=== PATIENT | male | born 1935 | race Caucasian/White ===

== ENCOUNTER 2017-01-28 10:32 | Inpatient (IN) ==
[2017-01-28] MEDS ORDERED: ONDANSETRON 4 MG/2 ML VIAL IV PRN (11:58)
[2017-01-28] MEDS: MORPHINE 2 MG/1 ML SYRINGE IV PRN (15:44)
[2017-01-28] MEDS: DEXTROSE 5% NACL 0.45% 1,000 ML IV SCH (15:44)
[2017-01-28] MEDS: CIPROFLOXACIN INJ 400 MG in PREMIX 1 EACH IV SCH (15:50)
[2017-01-28] MEDS: metroNIDAZOLE INJ 500 MG in PREMIX 1 EACH IV SCH ×2 (17:19→23:53)
[2017-01-28] MEDS: ACETAMINOPHEN 325 MG TABLET PO PRN (21:19)
[2017-01-29] MEDS: CIPROFLOXACIN INJ 400 MG in PREMIX 1 EACH IV SCH (01:19)
[2017-01-29] MEDS: DEXTROSE 5% NACL 0.45% 1,000 ML IV SCH ×4 (03:20→21:57)
[2017-01-29 05:56] LABS: Basophils % 0.2 % (0.0-0.8); Eosinophils # 0.2 10*3/uL (0.0-0.87); Eosinophils % 1.7 % (0.00-10.9); Hematocrit 41.3 VOL% (42.0-52.0); Hemoglobin 13.9 GM/DL (14.0-18.0); Immature Granulocytes % 1.1 %; Immature Granulocytes Absolute 0.14 #; Lymphocytes # 1.1 10*3/uL (1.4-4.0); Lymphocytes % 8.4 % (21.2-54.2); Mean Corpuscular HGB Conc 33.7 GM/DL (32-36); Mean Corpuscular Hemoglobin 30 PG (27-34); Mean Corpuscular Volume 89.4 FL (87-102); Mean Platelet Volume 11.1 FL (9.6-12.0); Monocytes # 0.8 10*3/uL (0.11-0.8); Monocytes % 6.2 % (1.7-12.7); Neutrophils # 10.6 10*3/uL (1.4-7.4); Neutrophils % 82.4 % (38.7-73.9); Platelet Count 138 T/CUMM (130-400); Red Blood Count 4.62 MC/CUMM (3.8-5.5); Red Cell Distribution Width 13.1 % (9.3-17.3); White Blood Count 12.8 T/CUMM (4-12)
[2017-01-29 06:32] LABS: Albumin 2.3 G/DL (3.4-5.0); Bilirubin,Total 1.6 MG/DL (0.2-1.0); Calcium 7.5 MG/DL (8.5-10.1); Osmolality,Calculated 283.3 MOS/KG (273-304); Potassium 3.2 MMOL/L (3.5-5.1); Total Protein 4.9 G/DL (6.4-8.3)
[2017-01-29] MEDS ORDERED: MORPHINE 2 MG/1 ML SYRINGE ONE (07:15)
[2017-01-29] MEDS ORDERED: ONDANSETRON 4 MG/2 ML VIAL ONE (07:31)
[2017-01-29 07:38] LABS: Burr Cells 2+; Lymphocytes 8 % (20-55); Microcytosis 2+; Platelet Estimate Decreased; Segmented Neutrophils 85 % (50-85); Total Cells Counted 100
[2017-01-29] MEDS: MORPHINE 2 MG/1 ML SYRINGE IV PRN ×2 (07:40→09:45)
[2017-01-29] MEDS: metroNIDAZOLE INJ 500 MG in PREMIX 1 EACH IV SCH ×2 (08:44→19:48)
[2017-01-29 10:01] LABS: ABG Base Excess -4.6 MMOL/L (-2.5-2.5); ABG HCO3 18.8 MMOL/L (20-26); ABG Oxygen Saturation 93.9 % (95-100); ABG PCO2 30.8 MM HG (35-48); ABG PH 7.404 (7.35-7.45); ABG PO2 61.6 MM HG (80-95); ABG TCO2 19.8 MMOL/L (23-27); Glucose Heart Surgery 113 MG/DL (74-106); Hemoglobin Heart Surgery 15.6 G/DL (14.0-18.0); Potassium Heart/CVR 3.4 MMOL/L (3.5-5.1)
[2017-01-29] MEDS ORDERED: ALBUTEROL 1.25 MG/3 ML NEB RESP TX PRN (10:06)
[2017-01-29] MEDS ORDERED: ALBUTEROL 1.25 MG/3 ML NEB RESP TX ONE (10:06)
[2017-01-29 10:10] LABS: Basophils % 0.2 % (0.0-0.8); Eosinophils # 0.1 10*3/uL (0.0-0.87); Eosinophils % 1.1 % (0.00-10.9); Hematocrit 44.7 VOL% (42.0-52.0); Hemoglobin 15.5 GM/DL (14.0-18.0); Immature Granulocytes % 1.9 %; Immature Granulocytes Absolute 0.22 #; Lymphocytes # 0.7 10*3/uL (1.4-4.0); Lymphocytes % 5.9 % (21.2-54.2); Mean Corpuscular HGB Conc 34.7 GM/DL (32-36); Mean Corpuscular Hemoglobin 31 PG (27-34); Mean Corpuscular Volume 90.1 FL (87-102); Mean Platelet Volume 11.5 FL (9.6-12.0); Monocytes # 0.3 10*3/uL (0.11-0.8); Monocytes % 2.3 % (1.7-12.7); Neutrophils # 10.2 10*3/uL (1.4-7.4); Neutrophils % 88.6 % (38.7-73.9); Platelet Count 155 T/CUMM (130-400); Red Blood Count 4.96 MC/CUMM (3.8-5.5); Red Cell Distribution Width 13.2 % (9.3-17.3); White Blood Count 11.5 T/CUMM (4-12)
[2017-01-29] MEDS: ACETAMINOPHEN 325 MG TABLET PO PRN (10:23)
[2017-01-29 10:48] LABS: Albumin 2.5 G/DL (3.4-5.0); Bilirubin,Total 1.6 MG/DL (0.2-1.0); Magnesium 1.8 MG/DL (1.8-2.4); Osmolality,Calculated 280.4 MOS/KG (273-304); Potassium 3.9 MMOL/L (3.5-5.1); Total Protein 5.6 G/DL (6.4-8.3)
[2017-01-29] MEDS: PIPERACILLIN/TAZOBACTAM 3,375 MG in SODIUM CHLORIDE 0.9% 100 ML IV SCH ×2 (12:00→21:57)
[2017-01-29 12:48] LABS: Apearance,Urine CLEAR (Clear); Bilirubin,Urine Negative (Negative); Blood, Urine Small mg/dL (Negative); Glucose,Urine (UA) Negative (Negative); Ketones,Urine Negative (Negative); Mucus,Urine Occasional /LPF (Occasional); Nitrite,Urine Negative (Negative); Protein,Urine 30 MG/DL; RBC,Urine 3 /HPF (0-4); Urine Color Amber (Yellow); WBC,Urine 2 /HPF (0-6)
[2017-01-29] MEDS: ENOXAPARIN 40 MG/0.4 ML SYRINGE SUBCUT SCH (18:57)
[2017-01-29] MEDS: PANTOPRAZOLE 40 MG TABLET PO SCH (19:45)
[2017-01-29] MEDS: MEROPENEM 1,000 MG in SODIUM CHLORIDE 0.9% 50 ML IV SCH (19:48)
[2017-01-30] MEDS: MEROPENEM 1,000 MG in SODIUM CHLORIDE 0.9% 50 ML IV SCH ×4 (02:45→22:43)
[2017-01-30] MEDS: metroNIDAZOLE INJ 500 MG in PREMIX 1 EACH IV SCH ×3 (03:30→19:58)
[2017-01-30] MEDS: PIPERACILLIN/TAZOBACTAM 3,375 MG in SODIUM CHLORIDE 0.9% 100 ML IV SCH ×3 (04:54→18:44)
[2017-01-30 05:11] LABS: Basophils % 0.3 % (0.0-0.8); Eosinophils # 0.3 10*3/uL (0.0-0.87); Eosinophils % 2.1 % (0.00-10.9); Hematocrit 39.8 VOL% (42.0-52.0); Hemoglobin 13.3 GM/DL (14.0-18.0); Immature Granulocytes % 0.6 %; Immature Granulocytes Absolute 0.07 #; Lymphocytes # 0.6 10*3/uL (1.4-4.0); Lymphocytes % 4.7 % (21.2-54.2); Mean Corpuscular HGB Conc 33.4 GM/DL (32-36); Mean Corpuscular Hemoglobin 30 PG (27-34); Mean Corpuscular Volume 91.1 FL (87-102); Monocytes # 0.8 10*3/uL (0.11-0.8); Monocytes % 6.4 % (1.7-12.7); Neutrophils # 10.4 10*3/uL (1.4-7.4); Neutrophils % 85.9 % (38.7-73.9); Platelet Count 130 T/CUMM (130-400); Red Blood Count 4.37 MC/CUMM (3.8-5.5); Red Cell Distribution Width 13.2 % (9.3-17.3); White Blood Count 12.1 T/CUMM (4-12)
[2017-01-30 05:47] LABS: Bilirubin,Total 1.2 MG/DL (0.2-1.0); Calcium 7.3 MG/DL (8.5-10.1); Osmolality,Calculated 282.3 MOS/KG (273-304); Potassium 3.8 MMOL/L (3.5-5.1); Total Protein 4.6 G/DL (6.4-8.3)
[2017-01-30 06:01] LABS: Band Neutrophils 4 % (0-10); Lymphocytes 6 % (20-55); Platelet Estimate Normal; Segmented Neutrophils 87 % (50-85); Total Cells Counted 100
[2017-01-30 06:02] LABS: Giant Platelets Few; Hypochromasia Slight; Microcytosis Slight
[2017-01-30] MEDS: DEXTROSE 5% NACL 0.45% 1,000 ML IV SCH ×4 (06:24→22:42)
[2017-01-30] MEDS: PANTOPRAZOLE 40 MG TABLET PO SCH (09:15)
[2017-01-30] MEDS ORDERED: DILTIAZEM 50 MG/10 ML VIAL IV ONE (10:31)
[2017-01-30] MEDS: ALBUTEROL/IPRATROPIUM 3 ML NEB RESP TX SCH ×3 (11:00→19:15)
[2017-01-30 11:16] LABS: Apearance,Urine CLEAR (Clear); Bilirubin,Urine Negative (Negative); Blood, Urine Moderate mg/dL (Negative); Glucose,Urine (UA) Negative (Negative); Ketones,Urine Negative (Negative); Nitrite,Urine Negative (Negative); Protein,Urine 30 MG/DL; RBC,Urine 13 /HPF (0-4); Squamous Epithelial Cell,Urine Occasional /HPF (0-10); Urine Color Yellow (Yellow); Urine Specific Gravity 1.018 (1.001-1.035); WBC,Urine 7 /HPF (0-6)
[2017-01-30] MEDS: DILTIAZEM INJ 100 MG in SODIUM CHLORIDE 0.9% 100 ML IV SCH (12:15)
[2017-01-30] MEDS: ACETAMINOPHEN 325 MG TABLET PO PRN (12:17)
[2017-01-30] MEDS: DILTIAZEM 30 MG TABLET PO SCH ×3 (13:17→20:00)
[2017-01-30] MEDS ORDERED: PANTOPRAZOLE 40 MG TABLET PO PRN (13:19)
[2017-01-30] MEDS: ASPIRIN EC 325 MG TABLET PO SCH (14:10)
[2017-01-30] MEDS: ENOXAPARIN 40 MG/0.4 ML SYRINGE SUBCUT SCH (16:18)
[2017-01-31] MEDS: ALBUTEROL/IPRATROPIUM 3 ML NEB RESP TX SCH ×2 (01:03→07:06)
[2017-01-31] MEDS: metroNIDAZOLE INJ 500 MG in PREMIX 1 EACH IV SCH ×3 (02:59→20:18)
[2017-01-31] MEDS: PIPERACILLIN/TAZOBACTAM 3,375 MG in SODIUM CHLORIDE 0.9% 100 ML IV SCH ×3 (02:59→18:17)
[2017-01-31 03:13] LABS: ABG Base Excess -0.2 MMOL/L (-2.5-2.5); ABG HCO3 23.8 MMOL/L (20-26); ABG Oxygen Saturation 95.5 % (95-100); ABG PH 7.426 (7.35-7.45); ABG PO2 70.3 MM HG (80-95); ABG TCO2 24.9 MMOL/L (23-27); Allen Test Positive
[2017-01-31 05:22] LABS: Basophils % 0.4 % (0.0-0.8); Eosinophils # 0.3 10*3/uL (0.0-0.87); Eosinophils % 2.3 % (0.00-10.9); Hematocrit 39.5 VOL% (42.0-52.0); Hemoglobin 13.6 GM/DL (14.0-18.0); Immature Granulocytes % 1.2 %; Immature Granulocytes Absolute 0.13 #; Lymphocytes # 0.9 10*3/uL (1.4-4.0); Lymphocytes % 8.5 % (21.2-54.2); Mean Corpuscular HGB Conc 34.4 GM/DL (32-36); Mean Corpuscular Hemoglobin 30 PG (27-34); Mean Corpuscular Volume 88.4 FL (87-102); Mean Platelet Volume 11.2 FL (9.6-12.0); Monocytes # 1.1 10*3/uL (0.11-0.8); Monocytes % 10.3 % (1.7-12.7); NRBC # 0.04 10*3/uL; Neutrophils # 8.2 10*3/uL (1.4-7.4); Neutrophils % 77.3 % (38.7-73.9); Platelet Count 122 T/CUMM (130-400); Red Blood Count 4.47 MC/CUMM (3.8-5.5); Red Cell Distribution Width 13.4 % (9.3-17.3); White Blood Count 10.6 T/CUMM (4-12)
[2017-01-31] MEDS: MEROPENEM 1,000 MG in SODIUM CHLORIDE 0.9% 50 ML IV SCH ×4 (06:01→22:13)
[2017-01-31 07:31] LABS: Bilirubin,Total 0.6 MG/DL (0.2-1.0); Calcium 7.4 MG/DL (8.5-10.1); Osmolality,Calculated 285.8 MOS/KG (273-304); Total Protein 4.5 G/DL (6.4-8.3)
[2017-01-31] MEDS: DILTIAZEM INJ 100 MG in SODIUM CHLORIDE 0.9% 100 ML IV SCH ×3 (08:00→16:03)
[2017-01-31] MEDS: DILTIAZEM 30 MG TABLET PO SCH ×4 (08:02→20:19)
[2017-01-31] MEDS: ASPIRIN EC 325 MG TABLET PO SCH (08:02)
[2017-01-31] MEDS: PANTOPRAZOLE 40 MG TABLET PO SCH (08:02)
[2017-01-31] MEDS: POTASSIUM CHLORIDE RIDER 10 MEQ in PREMIX 1 EACH IV PRN ×5 (08:03→13:38)
[2017-01-31] MEDS ORDERED: DILTIAZEM 50 MG/10 ML VIAL IV ONE (08:35)
[2017-01-31] MEDS ORDERED: POTASSIUM CHLORIDE 10 MEQ TABLET PO SCH (09:00)
[2017-01-31] MEDS ORDERED: DILTIAZEM 60 MG TABLET PO ONE (09:16)
[2017-01-31] MEDS: MONTELUKAST 10 MG TABLET PO SCH (09:40)
[2017-01-31] MEDS ORDERED: MAGNESIUM SULF RIDER 4 GM in PREMIX 1 EACH IV PRN (10:42)
[2017-01-31] MEDS ORDERED: MAGNESIUM SULF RIDER 2 GM in PREMIX 1 EACH IV PRN (10:42)
[2017-01-31] MEDS: DEXTROSE 5% NACL 0.45% 1,000 ML IV SCH ×2 (11:33→23:56)
[2017-01-31] MEDS: LEVALBUTEROL 0.63 MG/3 ML NEB RESP TX SCH ×2 (13:13→19:50)
[2017-01-31] MEDS: ENOXAPARIN 40 MG/0.4 ML SYRINGE SUBCUT SCH (15:13)
[2017-01-31] MEDS: MORPHINE 2 MG/1 ML SYRINGE IV PRN (23:56)
[2017-01-31] MEDS: ACETAMINOPHEN 325 MG TABLET PO PRN (23:56)
[2017-02-01] MEDS: LEVALBUTEROL 0.63 MG/3 ML NEB RESP TX SCH ×4 (01:02→20:03)
[2017-02-01] MEDS: DILTIAZEM INJ 100 MG in SODIUM CHLORIDE 0.9% 100 ML IV SCH (01:45)
[2017-02-01 02:51] LABS: ABG Base Excess 1.8 MMOL/L (-2.5-2.5); ABG Oxygen Saturation 94.7 % (95-100); ABG PH 7.472 (7.35-7.45); ABG PO2 63.3 MM HG (80-95); ABG TCO2 26.1 MMOL/L (23-27); Allen Test Positive
[2017-02-01] MEDS: PIPERACILLIN/TAZOBACTAM 3,375 MG in SODIUM CHLORIDE 0.9% 100 ML IV SCH ×3 (03:31→18:56)
[2017-02-01] MEDS: metroNIDAZOLE INJ 500 MG in PREMIX 1 EACH IV SCH ×3 (03:31→22:34)
[2017-02-01 06:18] LABS: Calcium 7.3 MG/DL (8.5-10.1); Osmolality,Calculated 284.8 MOS/KG (273-304); Potassium 3.2 MMOL/L (3.5-5.1)
[2017-02-01] MEDS: MEROPENEM 1,000 MG in SODIUM CHLORIDE 0.9% 50 ML IV SCH ×3 (06:24→23:36)
[2017-02-01] MEDS: POTASSIUM CHLORIDE RIDER 10 MEQ in PREMIX 1 EACH IV PRN ×4 (07:03→11:06)
[2017-02-01] MEDS: ASPIRIN EC 325 MG TABLET PO SCH (08:33)
[2017-02-01] MEDS: PANTOPRAZOLE 40 MG TABLET PO SCH (08:33)
[2017-02-01] MEDS: POTASSIUM CHLORIDE 20 MEQ TABLET PO SCH (08:33)
[2017-02-01] MEDS: MONTELUKAST 10 MG TABLET PO SCH (08:33)
[2017-02-01] MEDS: DILTIAZEM 30 MG TABLET PO SCH (08:33)
[2017-02-01] MEDS: DILTIAZEM CD 240 MG CAPSULE PO SCH (09:41)
[2017-02-01] MEDS: ENOXAPARIN 40 MG/0.4 ML SYRINGE SUBCUT SCH (16:26)
[2017-02-01] MEDS: DOCOSANOL 10% CREAM 2 GM TUBE TOP SCH ×2 (17:40→21:35)
[2017-02-01] MEDS: MORPHINE 2 MG/1 ML SYRINGE IV PRN (21:40)
[2017-02-02] MEDS: LEVALBUTEROL 0.63 MG/3 ML NEB RESP TX SCH ×4 (00:28→21:00)
[2017-02-02] MEDS: PIPERACILLIN/TAZOBACTAM 3,375 MG in SODIUM CHLORIDE 0.9% 100 ML IV SCH ×3 (03:26→23:39)
[2017-02-02] MEDS: MORPHINE 2 MG/1 ML SYRINGE IV PRN (03:29)
[2017-02-02] MEDS: DOCOSANOL 10% CREAM 2 GM TUBE TOP SCH ×5 (05:48→20:30)
[2017-02-02 07:09] LABS: Calcium 7.4 MG/DL (8.5-10.1); Osmolality,Calculated 279.3 MOS/KG (273-304); Potassium 3.8 MMOL/L (3.5-5.1)
[2017-02-02] MEDS: metroNIDAZOLE INJ 500 MG in PREMIX 1 EACH IV SCH ×2 (09:14→17:14)
[2017-02-02] MEDS: ASPIRIN EC 325 MG TABLET PO SCH (09:15)
[2017-02-02] MEDS: DILTIAZEM CD 240 MG CAPSULE PO SCH (09:15)
[2017-02-02] MEDS: POTASSIUM CHLORIDE 20 MEQ TABLET PO SCH (09:16)
[2017-02-02] MEDS: PANTOPRAZOLE 40 MG TABLET PO SCH (09:16)
[2017-02-02] MEDS: MONTELUKAST 10 MG TABLET PO SCH (09:16)
[2017-02-02] MEDS: MEROPENEM 1,000 MG in SODIUM CHLORIDE 0.9% 50 ML IV SCH ×2 (10:57→20:31)
[2017-02-02 13:09] LABS: Apearance,Urine CLEAR (Clear); Bilirubin,Urine Negative (Negative); Blood, Urine Negative (Negative); Glucose,Urine (UA) Negative (Negative); Ketones,Urine 5 mg/dL (Negative); Mucus,Urine Occasional /LPF (Occasional); Nitrite,Urine Negative (Negative); Protein,Urine Negative; RBC,Urine 3 /HPF (0-4); Urine Color Yellow (Yellow); Urine Specific Gravity 1.012 (1.001-1.035); Urine Urobilinogen < 2.0 EU/DL (0.2-1.0); WBC,Urine 1 /HPF (0-6)
[2017-02-02 14:59] LABS: Procalcitonin, S 3.1 ng/mL (<=0.15)
[2017-02-02] MEDS ORDERED: TUBERCULIN SKIN TEST 0.1 ML SYRINGE INTRADERM ONE (15:00)
[2017-02-02] MEDS: ZINC OXIDE PASTE 113 GM TUBE TOP SCH (15:05)
[2017-02-02] MEDS: ENOXAPARIN 40 MG/0.4 ML SYRINGE SUBCUT SCH (17:18)
[2017-02-03] MEDS: metroNIDAZOLE INJ 500 MG in PREMIX 1 EACH IV SCH ×2 (00:13→08:03)
[2017-02-03] MEDS: DOCOSANOL 10% CREAM 2 GM TUBE TOP SCH ×3 (00:14→10:12)
[2017-02-03] MEDS: ZINC OXIDE PASTE 113 GM TUBE TOP SCH ×2 (00:14→10:12)
[2017-02-03] MEDS: LEVALBUTEROL 0.63 MG/3 ML NEB RESP TX SCH ×3 (01:04→12:08)
[2017-02-03] MEDS: MEROPENEM 1,000 MG in SODIUM CHLORIDE 0.9% 50 ML IV SCH ×2 (03:16→09:39)
[2017-02-03] MEDS: PIPERACILLIN/TAZOBACTAM 3,375 MG in SODIUM CHLORIDE 0.9% 100 ML IV SCH ×2 (03:52→11:10)
[2017-02-03 07:14] LABS: Calcium 7.7 MG/DL (8.5-10.1); Magnesium 1.9 MG/DL (1.8-2.4); Osmolality,Calculated 280.3 MOS/KG (273-304); Potassium 3.6 MMOL/L (3.5-5.1)
[2017-02-03] MEDS: MONTELUKAST 10 MG TABLET PO SCH (08:29)
[2017-02-03] MEDS: DILTIAZEM CD 240 MG CAPSULE PO SCH (08:29)
[2017-02-03] MEDS: ASPIRIN EC 325 MG TABLET PO SCH (08:29)
[2017-02-03] MEDS: PANTOPRAZOLE 40 MG TABLET PO SCH (08:29)
[2017-02-03] MEDS: POTASSIUM CHLORIDE 20 MEQ TABLET PO SCH (08:29)
[2017-02-03 12:30] VITALS: BP 136/78
[2017-02-03] MEDS ORDERED: APIXABAN 5 MG TABLET PO SCH (21:00)
== END 2017-02-03 14:37 | disposition swing bed (61) | DRG 444 ==
LOC: N.3E 11:56 → N.ICU 01-29 09:12 → N.3E 02-01 10:37
PROVIDERS: ADMIT Surgery; ATTEND Surgery

== ENCOUNTER 2018-07-08 19:07 | Inpatient (IN) ==
[2018-07-09] MEDS ORDERED: ONDANSETRON 4 MG/2 ML VIAL IV PRN (00:15)
[2018-07-09] MEDS: SODIUM CHLORIDE 0.9% 1,000 ML IV SCH ×3 (00:46→16:52)
[2018-07-09] MEDS: PIPERACILLIN/TAZOBACTAM 3,375 MG in SODIUM CHLORIDE 0.9% 100 ML IV SCH ×3 (00:48→16:53)
[2018-07-09 01:29] LABS: Albumin 2.8 G/DL (3.4-5.0); Bilirubin,Total 6.9 MG/DL (0.2-1.0); Calcium 8.1 MG/DL (8.5-10.1); Osmolality,Calculated 279.4 MOS/KG (273-304); Potassium 3.6 MMOL/L (3.5-5.1); Thyroid Stimulating Hormone 0.151 uIU/ml (0.358-3.74); Total Protein 5.9 G/DL (6.4-8.3)
[2018-07-09 05:52] LABS: INR 1.1; PT Patient Result 11.7 SECS
[2018-07-09] MEDS: DILTIAZEM CD 240 MG CAPSULE PO SCH (09:28)
[2018-07-09] MEDS: APIXABAN 5 MG TABLET PO SCH (10:43)
[2018-07-09] MEDS: LEVOTHYROXINE 125 MCG TABLET PO SCH (10:51)
[2018-07-09] MEDS: MONTELUKAST 10 MG TABLET PO SCH (10:51)
[2018-07-09] MEDS: predniSONE 5 MG TABLET PO SCH (10:51)
[2018-07-09] MEDS: PANTOPRAZOLE 40 MG TABLET PO SCH (10:52)
[2018-07-09 11:40] LABS: Basophils % 0.2 % (0.0-0.8); Eosinophils # 0.1 10*3/uL (0.0-0.87); Eosinophils % 1.3 % (0.00-10.9); Hematocrit 39.7 VOL% (42.0-52.0); Immature Granulocytes % 0.4 %; Immature Granulocytes Absolute 0.04 #; Lymphocytes # 0.9 10*3/uL (1.4-4.0); Lymphocytes % 10.3 % (21.2-54.2); Mean Corpuscular HGB Conc 32.7 GM/DL (32-36); Mean Corpuscular Hemoglobin 30 PG (27-34); Mean Corpuscular Volume 90.8 FL (87-102); Monocytes % 11.1 % (1.7-12.7); Neutrophils # 6.9 10*3/uL (1.4-7.4); Neutrophils % 76.7 % (38.7-73.9); Platelet Count 135 T/CUMM (130-400); Red Blood Count 4.37 MC/CUMM (3.8-5.5); Red Cell Distribution Width 13.1 % (9.3-17.3)
[2018-07-09] MEDS ORDERED: ACETAMINOPHEN 325 MG TABLET PO ONE (19:12)
[2018-07-09] MEDS: POLYETHYLENE GLYCOL POWDER 17 GM PACK PO SCH (20:26)
[2018-07-09] MEDS ORDERED: BISACODYL 5 MG TABLET PO SCH (21:00)
[2018-07-10] MEDS: PIPERACILLIN/TAZOBACTAM 3,375 MG in SODIUM CHLORIDE 0.9% 100 ML IV SCH ×3 (00:13→17:02)
[2018-07-10 05:50] LABS: Basophils % 0.2 % (0.0-0.8); Eosinophils # 0.1 10*3/uL (0.0-0.87); Eosinophils % 1.1 % (0.00-10.9); Hematocrit 39.6 VOL% (42.0-52.0); Immature Granulocytes % 0.6 %; Immature Granulocytes Absolute 0.06 #; Lymphocytes # 0.6 10*3/uL (1.4-4.0); Lymphocytes % 6.7 % (21.2-54.2); Mean Corpuscular HGB Conc 32.8 GM/DL (32-36); Mean Corpuscular Hemoglobin 30 PG (27-34); Mean Corpuscular Volume 90.2 FL (87-102); Mean Platelet Volume 11.7 FL (9.6-12.0); Monocytes % 10.4 % (1.7-12.7); Neutrophils # 7.6 10*3/uL (1.4-7.4); Platelet Count 110 T/CUMM (130-400); Red Blood Count 4.39 MC/CUMM (3.8-5.5); White Blood Count 9.4 T/CUMM (4-12)
[2018-07-10 06:04] LABS: Albumin 2.4 G/DL (3.4-5.0); Bilirubin,Direct 6.19 MG/DL (0.0-0.20); Bilirubin,Indirect 1.8 MG/DL (0.0-1.0); Total Protein 5.9 G/DL (6.4-8.3)
[2018-07-10 06:09] LABS: Microcytosis Slight
[2018-07-10] MEDS ORDERED: BISACODYL 10 MG SUPP RECTAL PRN (07:21)
[2018-07-10] MEDS: DILTIAZEM CD 240 MG CAPSULE PO SCH (08:33)
[2018-07-10] MEDS: predniSONE 5 MG TABLET PO SCH (08:34)
[2018-07-10] MEDS: MONTELUKAST 10 MG TABLET PO SCH (08:34)
[2018-07-10] MEDS: PANTOPRAZOLE 40 MG TABLET PO SCH (08:34)
[2018-07-10] MEDS: POLYETHYLENE GLYCOL POWDER 17 GM PACK PO SCH ×2 (08:34→21:26)
[2018-07-10] MEDS: LEVOTHYROXINE 125 MCG TABLET PO SCH (08:34)
[2018-07-10] MEDS ORDERED: MORPHINE 4 MG/1 ML VIAL IV PRN (09:25)
[2018-07-10] MEDS: SODIUM CHLORIDE 0.9% 1,000 ML IV SCH (13:20)
[2018-07-11] MEDS: PIPERACILLIN/TAZOBACTAM 3,375 MG in SODIUM CHLORIDE 0.9% 100 ML IV SCH ×3 (01:47→19:21)
[2018-07-11] MEDS: SODIUM CHLORIDE 0.9% 1,000 ML IV SCH ×4 (01:48→19:21)
[2018-07-11 04:39] LABS: Basophils % 0.3 % (0.0-0.8); Eosinophils # 0.2 10*3/uL (0.0-0.87); Eosinophils % 2.6 % (0.00-10.9); Hematocrit 38.3 VOL% (42.0-52.0); Hemoglobin 12.5 GM/DL (14.0-18.0); Immature Granulocytes % 0.6 %; Immature Granulocytes Absolute 0.05 #; Lymphocytes # 1.1 10*3/uL (1.4-4.0); Lymphocytes % 14.4 % (21.2-54.2); Mean Corpuscular HGB Conc 32.6 GM/DL (32-36); Mean Corpuscular Hemoglobin 30 PG (27-34); Mean Corpuscular Volume 90.8 FL (87-102); Mean Platelet Volume 11.3 FL (9.6-12.0); Monocytes # 0.9 10*3/uL (0.11-0.8); Monocytes % 11.6 % (1.7-12.7); Neutrophils # 5.5 10*3/uL (1.4-7.4); Neutrophils % 70.5 % (38.7-73.9); Platelet Count 167 T/CUMM (130-400); Red Blood Count 4.22 MC/CUMM (3.8-5.5); Red Cell Distribution Width 13.2 % (9.3-17.3); White Blood Count 7.7 T/CUMM (4-12)
[2018-07-11 05:09] LABS: Albumin 2.3 G/DL (3.4-5.0); Bilirubin,Total 4.4 MG/DL (0.2-1.0); Calcium 8.1 MG/DL (8.5-10.1); Osmolality,Calculated 281.1 MOS/KG (273-304); Potassium 3.4 MMOL/L (3.5-5.1); Total Protein 5.9 G/DL (6.4-8.3)
[2018-07-11] MEDS ORDERED: INDOMETHACIN SUPP 50 MG SUPP RECTAL ONE (08:51)
[2018-07-11] MEDS ORDERED: fentaNYL 100 MCG/2 ML VIAL ONE (09:02)
[2018-07-11] MEDS: DILTIAZEM CD 240 MG CAPSULE PO SCH (09:15)
[2018-07-11] MEDS ORDERED: PROPOFOL 200 MG/20 ML VIAL IV ONE (10:00)
[2018-07-11] MEDS ORDERED: HYDROCORTISONE 100 MG VIAL ONE (10:00)
[2018-07-11] MEDS ORDERED: LIDOCAINE 2% 5 ML VIAL ONE (10:00)
[2018-07-11] MEDS ORDERED: ONDANSETRON 4 MG/2 ML VIAL ONE (10:00)
[2018-07-11] MEDS ORDERED: NEOSTIGMINE 10 MG/10 ML VIAL ONE (10:00)
[2018-07-11] MEDS ORDERED: ROCURONIUM 100 MG/10 ML VIAL IV ONE (10:00)
[2018-07-11] MEDS ORDERED: GLYCOPYRROLATE 0.4 MG/2 ML VIAL ONE (10:00)
[2018-07-11] MEDS: POLYETHYLENE GLYCOL POWDER 17 GM PACK PO SCH ×2 (12:42→20:46)
[2018-07-11] MEDS: predniSONE 5 MG TABLET PO SCH (12:42)
[2018-07-11] MEDS: LEVOTHYROXINE 100 MCG TABLET PO SCH (12:42)
[2018-07-11] MEDS: MONTELUKAST 10 MG TABLET PO SCH (12:42)
[2018-07-11] MEDS: PANTOPRAZOLE 40 MG TABLET PO SCH (12:42)
[2018-07-11] MEDS ORDERED: TUBERCULIN SKIN TEST 0.1 ML SYRINGE INTRADERM ONE (15:30)
[2018-07-12] MEDS: PIPERACILLIN/TAZOBACTAM 3,375 MG in SODIUM CHLORIDE 0.9% 100 ML IV SCH ×2 (03:24→11:35)
[2018-07-12] MEDS ORDERED: URSODIOL 300 MG CAPSULE PO SCH (09:00)
[2018-07-12] MEDS: predniSONE 5 MG TABLET PO SCH (09:12)
[2018-07-12] MEDS: MONTELUKAST 10 MG TABLET PO SCH (09:12)
[2018-07-12] MEDS: PANTOPRAZOLE 40 MG TABLET PO SCH (09:12)
[2018-07-12] MEDS: POLYETHYLENE GLYCOL POWDER 17 GM PACK PO SCH (09:12)
[2018-07-12] MEDS: LEVOTHYROXINE 100 MCG TABLET PO SCH (09:12)
[2018-07-12] MEDS: DILTIAZEM CD 240 MG CAPSULE PO SCH (09:12)
[2018-07-12] MEDS: APIXABAN 5 MG TABLET PO SCH (09:16)
[2018-07-12] MEDS: SODIUM CHLORIDE 0.9% 1,000 ML IV SCH ×2 (09:20→13:55)
[2018-07-12 12:00] VITALS: BP 116/73
== END 2018-07-12 14:55 | DRG 446 ==
LOC: SUATTDRO 20:36 → N.3E 20:36
PROVIDERS: ADMIT Internal Medicine; ATTEND Internal Medicine
PROC: ERCPWSP (ICD-10-PCS; 2018-07-11 08:05)